=== PATIENT | female | born 1985 | race Caucasian/White ===

== ENCOUNTER → 2019-01-22 | Outpatient (CLI) | payer BC ==
[~2019-01-22] MED LIST: Pseudoephedrine30 MG PO
== END | disposition home or self-care (01) ==
LOC: PLD 13:00 → LAB SHORT 13:00
DX: D06.0 Carcinoma in situ of endocervix (principal); N87.9 Dysplasia of cervix uteri, unspecified
CPT/HCPCS: 88305

== ENCOUNTER → 2019-02-17 | Outpatient (CLI) | payer BC | END | disposition home or self-care (01) | LOC: PLD 12:29 → LAB SHORT 12:29 | DX: D06.9 Carcinoma in situ of cervix, unspecified (principal) | CPT/HCPCS: 88307 ==

== ENCOUNTER → 2020-09-20 | Outpatient (CLI) | payer BC | END | disposition home or self-care (01) | LOC: LAB SHORT 17:39 → PLD 17:39 | DX: R10.10 Upper abdominal pain, unspecified (principal); N39.0 Urinary tract infection, site not specified | CPT/HCPCS: 83690; 87086 ==

== ENCOUNTER → 2020-10-06 | Outpatient (CLI) | payer BC ==
[2020-10-10 05:09] LABS: FREE TESTOSTERONE(DIRECT) 3.2 pg/mL (0.0-4.2)
== END | disposition home or self-care (01) ==
LOC: PLD 07:53 → LAB SHORT 07:53 → LAB FUT 09-22 17:05
PROVIDERS: Nurse Practitioner Psychiatric/Mental Health
DX: Z23 Encounter for immunization (principal); E02 Subclinical iodine-deficiency hypothyroidism; E28.0 Estrogen excess; K59.00 Constipation, unspecified; R14.0 Abdominal distension (gaseous)
CPT/HCPCS: 36415; 83525; 84402; 84403; 86304; 86677

== ENCOUNTER → 2021-11-09 | Outpatient (CLI) | payer BC ==
[2021-11-09 17:04] LABS: BASOPHILS ABSOLUTE AUTO 0.03 K/mm3 (0.00-0.23); BASOPHILS PERCENT AUTO 1 % (0-2); EOSINOPHILS PERCENT AUTO 2 % (0-6); Hematocrit 39.4 % (33.0-51.0); Hemoglobin 13.3 g/dL (11.5-16.0); IMMATURE GRAN ABSOLUTE AUTO 0.01 K/mm3 (0.00-0.10); IMMATURE GRAN PERCENT AUTO 0 % (0-1); LYMPHOCYTES ABSOLUTE AUTO 2.59 K/mm3 (0.84-5.20); LYMPHOCYTES PERCENT AUTO 45 % (21-46); MONOCYTES ABSOLUTE AUTO 0.33 K/mm3 (0.16-1.47); MONOCYTES PERCENT AUTO 6 % (4-13); Mean Corpuscular HGB 29.4 pg (26.0-34.0); Mean Corpuscular HGB Conc 33.8 g/dL (31.5-36.5); Mean Corpuscular Volume 87 fL (80-100); Mean Platelet Volume 9.4 fL (9.1-12.4); NEUTROPHILS ABSOLUTE AUTO 2.76 K/mm3 (1.96-9.15); NEUTROPHILS PERCENT AUTO 47 % (41-73); Platelet Count 332 K/mm3 (150-400); RDW Coefficient Variation 11.9 % (11.7-14.2); RDW Standard Deviation 38.1 fL (35.1-46.3); Red Blood Cell Count 4.53 M/mm3 (3.80-5.20); White Blood Cell Count 5.82 K/mm3 (4.00-11.30)
[2021-11-09 17:29] LABS: Alanine Aminotransfer (ALT/SGP 27 U/L (12-78); Albumin, Blood 3.9 g/dL (3.4-5.0); Albumin/Globulin Ratio 1.1 (0.8-1.8); Alk Phos 58 U/L (50-136); Anion Gap 5 mmol/L (6-16); Aspartate Aminotrans (AST/SGOT 18 U/L (12-37); Bilirubin, Total 0.3 mg/dL (0.1-1.0); Blood Urea Nitrogen 15 mg/dL (8-24); Bun/Creatinine Ratio 20.9 (12.0-20.0); CO2, Blood 27 mmol/L (21-32); Chloride, Blood 108 mmol/L (98-108); Creatinine, Blood 0.72 mg/dL (0.40-1.00); Globulin, Blood 3.4 g/dL (2.2-4.0); Glomerular Filtration Rate >60 (60-); Glucose, Blood 96 mg/dL (70-99); Magnesium, Blood 2.2 mg/dL (1.6-2.4); Potassium, Blood 4.2 mmol/L (3.5-5.5); Sodium, Blood 140 mmol/L (136-145); Total Protein, Blood 7.3 g/dL (6.4-8.2)
== END | disposition home or self-care (01) ==
LOC: LAB SHORT 16:10
PROVIDERS: Nurse Practitioner Family
DX: M25.561 Pain in right knee (principal)
CPT/HCPCS: 80053; 83735; 85025

== ENCOUNTER 2024-03-22 09:42 | Day surgery (SDC) | payer BC ==
[2024-03-22] MEDS ORDERED: methylPREDNISolone acetate 80 MG/ML 1MLVIAL ONE (09:44)
[2024-03-22 10:15] VITALS: BP 148/102
--- NOTE | 2024-03-22 11:26 | NUR ---
03/22/24 1126 Gricelda Murphy History, Chart, Medications and Allergies reviewed before start of procedure.
[2024-03-22] MEDS ORDERED: Lidocaine 2%-Epineph 1:200000 20 ML SDV ONE (11:37)
[2024-03-22 11:55] VITALS: BP 145/99
[2024-03-22 12:05] VITALS: BP 147/95
--- NOTE | 2024-03-22 12:31 | NUR ---
1208 BANDAID PLACED OVER LUMBAR INJECTION SITE AFTER INJECTION. SITE CLEAR. PTIENT TOLERATED PROCEDURE WELL. STEADY ON FEET WHEN UP CHANGING CLOTHES AFTER PROCEDURE. PT AMBULATE STEADY ON FEET WHEN DISCHARGED HOME.
== END 2024-03-22 12:10 | disposition home or self-care (01) ==
LOC: ORSCMMR 09:42 → ORD 10:30 → ORSCMMR 12:10
PROVIDERS: Orthopaedic Surgery
PROC: 3E0R33Z Introduction of Anti-inflammatory into Spinal Canal, Percutaneous Approach (ICD-10-PCS; principal; 2024-03-22 10:30)
DX: M51.27 Other intervertebral disc displacement, lumbosacral region (principal); M54.16 Radiculopathy, lumbar region; Z79.899 Other long term (current) drug therapy

== ENCOUNTER → 2024-05-05 | Outpatient (CLI) | payer BC ==
[2024-05-18 11:35] LABS: HPV HIGH RISK BY TMA Not Detected; HPV SOURCE Vaginal
== END | disposition home or self-care (01) ==
LOC: LAB SHORT 16:11 → LAB 16:11
PROVIDERS: Obstetrics & Gynecology
DX: Z01.419 Encounter for gynecological examination (general) (routine) without abnormal findings (principal)
CPT/HCPCS: 87624; G0123

== ENCOUNTER 2025-05-16 09:52 | Day surgery (SDC) | payer BC ==
[~2025-05-16] VITALS: Ht 160 cm; Wt 74.7 kg
[2025-05-16] MEDS ORDERED: DESV50 (11:08)
[2025-05-16] MEDS ORDERED: Budeprion Xl300 MG (11:08)
[2025-05-16] MEDS ORDERED: Vyvanse70 MG (11:08)
[2025-05-16] MEDS ORDERED: PROG100 (11:09)
[2025-05-16] MEDS ORDERED: MAGNESIUM GLYC120 M1 (11:09)
[2025-05-16] MEDS ORDERED: MAGAMI (11:10)
[2025-05-16] MEDS ORDERED: B-COMPLEX1 EACH (11:10)
[2025-05-16] MEDS ORDERED: ASTAXANTHIN (11:10)
[2025-05-16] MEDS ORDERED: ASPIRIN REGIMEN81 MG (11:11)
[2025-05-16] MEDS ORDERED: Midazolam HCL 1 MG/ML 5MLVIAL ONE (11:59)
[2025-05-16] MEDS ORDERED: Glycopyrrolate 0.2 MG/ML 1MLVIAL ONE (12:22)
[2025-05-16] MEDS ORDERED: Ondansetron HCl 2 MG / ML 2ML Vial ONE (12:22)
[2025-05-16] MEDS ORDERED: Ipratropium/Albuterol SulF 2.5-0.5MG/3 ML Amp ONE (12:28)
[2025-05-16 12:54] VITALS: BP 110/85
--- NOTE | 2025-05-16 12:58 | NUR ---
05/16/25 1258 Enrico Kennedy LUNG SOUNDS COURSE ON LEFT SIDE, PT OCCASIONALLY COUGHING, STATING "THERE FEELS LIKE THERE IS SOMETHING STUCK IN MY THROAT THAT WON'T COME UP." NON PRODUCTIVE, DRY COUGH. DUONEB TX GIVEN IN STEPDOWN PER ANESTHESIA ORDERS. LUNGS SOUND MORE CLEAR, SLIGHTLY COURSE POST [place] TX. PT STATING "BREATHING EASIER". SPO2 100% ON ROOM AIR. WILL SENT PT HOME WITH AN INCENTIVE SPIROMETER PER DR. CHAPMAN, INSTRUCTED PT TO USE IT 10X PER HOURS, WHILE AWAKE, FOR NEXT 48 HOURS TO ENCOURAGE DEEP BREATHING AND COUGHING.
--- NOTE | 2025-05-16 13:12 | NUR ---
05/16/25 1312 SAL TEMPLETON CALLED INTO PROCEDURE FOR ANES. ASSISTANCE. DURING SENDATION. END NOTE RDS
== END 2025-05-16 13:13 | disposition home or self-care (01) ==
LOC: ORSCSDS 09:52
PROVIDERS: Surgery
PROC: 0DBM8ZX Excision of Descending Colon, Via Natural or Artificial Opening Endoscopic, Diagnostic (ICD-10-PCS; principal; 2025-05-16 11:15)
DX: Z12.11 Encounter for screening for malignant neoplasm of colon (principal); Z83.719 Family history of colon polyps, unspecified; D12.4 Benign neoplasm of descending colon; F32.A Depression, unspecified; Z79.899 Other long term (current) drug therapy; E03.9 Hypothyroidism, unspecified; Z86.73 Personal history of transient ischemic attack (TIA), and cerebral infarction without residual deficits; F41.9 Anxiety disorder, unspecified; Z85.41 Personal history of malignant neoplasm of cervix uteri; Z87.891 Personal history of nicotine dependence
CPT/HCPCS: 88305; J2250; J2405; J2704; J7120